=== PATIENT | female | born 1940 | race Caucasian/White ===

== ENCOUNTER 2016-08-31 09:50 | Outpatient (CLI) | payer MEDICARE, OTHER | END 2016-08-31 09:51 | disposition home or self-care (01) | DX: Z12.31 Encounter for screening mammogram for malignant neoplasm of breast (principal); Z80.3 Family history of malignant neoplasm of breast ==

== ENCOUNTER 2017-01-05 07:46 | Day surgery (SDC) | payer MEDICARE, OTHER ==
[2017-01-05] MEDS ORDERED: LACTATED RINGERS 500 ML IV ONE (07:54)
[2017-01-05] MEDS ORDERED: CYCLOPENTOLATE 1% OPHTH DROPS 2 ML OPTH ONE (08:05)
[2017-01-05] MEDS ORDERED: TROPICAMIDE 1% OPHTH 2 ML DROPS OPTH ONE (08:05)
[2017-01-05] MEDS ORDERED: KETOROLAC 0.45% OPHTH DROPS OPTH ONE (08:05)
[2017-01-05] MEDS ORDERED: MIDAZOLAM 2 MG/2 ML VIAL IVP ONE (08:59)
[2017-01-05] MEDS ORDERED: levoFLOXacin 0.5% OPHTH DROPS 5 ML OPTH ONE (09:25)
[2017-01-05] MEDS ORDERED: NEOMYCIN/POLYMYX/DEXAMETH OPHTH OINT OPTH ONE (09:25)
[2017-01-05] MEDS ORDERED: EPINEPHrine 1 MG/ML AMP IO ONE (09:25)
[2017-01-05] MEDS ORDERED: PROPARACAINE 0.5% OPHTH DROPS 15 ML OPTH ONE (09:25)
[2017-01-05] MEDS ORDERED: BRIMONIDINE 0.2% OPHTH DROPS 5 ML OPTH ONE (09:25)
[2017-01-05] MEDS ORDERED: BSS/LIDOCAINE/EPINEPHRINE 1 ML SYRINGE IO ONE (09:26)
[2017-01-05] MEDS ORDERED: CHONDR SULF/HYALURONATE SYRINGE IO ONE (09:26)
== END 2017-01-05 07:47 | disposition home or self-care (01) ==
PROC: 08RK3JZ Replacement of Left Lens with Synthetic Substitute, Percutaneous Approach (ICD-10-PCS; principal; 2017-01-05 09:00)
DX: H25.12 Age-related nuclear cataract, left eye (principal); I10 Essential (primary) hypertension; E11.9 Type 2 diabetes mellitus without complications; I25.2 Old myocardial infarction; I25.10 Atherosclerotic heart disease of native coronary artery without angina pectoris; Z95.5 Presence of coronary angioplasty implant and graft; Z87.891 Personal history of nicotine dependence
CPT/HCPCS: 66984; V2632; V2787

== ENCOUNTER 2017-01-19 08:30 | Day surgery (SDC) | payer MEDICARE, OTHER ==
[2017-01-19] MEDS ORDERED: LACTATED RINGERS 500 ML IV ONE (08:56)
[2017-01-19] MEDS ORDERED: KETOROLAC 0.45% OPHTH DROPS OPTH ONE (09:10)
[2017-01-19] MEDS ORDERED: CYCLOPENTOLATE 1% OPHTH DROPS 2 ML OPTH ONE (09:10)
[2017-01-19] MEDS ORDERED: TROPICAMIDE 1% OPHTH 2 ML DROPS OPTH ONE (09:10)
[2017-01-19] MEDS ORDERED: fentaNYL 100 MCG/2 ML VIAL IVP ONE (10:20)
[2017-01-19] MEDS ORDERED: MIDAZOLAM 2 MG/2 ML VIAL IVP ONE (10:20)
[2017-01-19] MEDS ORDERED: METOPROLOL 5 MG/5 ML VIAL IVP ONE (10:20)
[2017-01-19] MEDS ORDERED: EPINEPHrine 1 MG/ML AMP IO ONE (10:23)
[2017-01-19] MEDS ORDERED: levoFLOXacin 0.5% OPHTH DROPS 5 ML OPTH ONE (10:23)
[2017-01-19] MEDS ORDERED: BRIMONIDINE 0.2% OPHTH DROPS 5 ML OPTH ONE (10:23)
[2017-01-19] MEDS ORDERED: NEOMYCIN/POLYMYX/DEXAMETH OPHTH OINT OPTH ONE (10:23)
[2017-01-19] MEDS ORDERED: BSS/LIDOCAINE/EPINEPHRINE 1 ML SYRINGE IO ONE (10:23)
[2017-01-19] MEDS ORDERED: CHONDR SULF/HYALURONATE SYRINGE IO ONE (10:23)
[2017-01-19] MEDS ORDERED: PROPARACAINE 0.5% OPHTH DROPS 15 ML OPTH ONE (10:23)
[2017-01-19 11:21] VITALS: BP 142/78
--- NOTE | 2017-01-19 12:36 | OPERATIVE REPORT ---
DATE OF SURGERY: 01/19/2017 00:00:00 PREOPERATIVE DIAGNOSIS: Visually impairing cataract, right eye. POSTOPERATIVE DIAGNOSIS: Visually impairing cataract, right eye. NAME OF PROCEDURE: Phacoemulsification cataract extraction with toric intraocular lens implant of the right eye. SURGEON: Christian Acosta MD ANESTHESIA: Topical 0.5% tetracaine with monitored sedation and intracameral Shugarcaine. COMPLICATIONS: None. DESCRIPTION OF SURGICAL PROCEDURE: The patient was brought to the OR and the eye was anesthetized, an d a corneal marker was used to identify the axis of orientation for the toric intraocular lens. The p atient was then prepped and draped in the usual ophthalmic manner. An adhesive plastic drape was plac ed over the eye, a slit was made in the drape, and topical anesthetic was placed on the eye. A lid sp eculum was used to separate the eyelids and expose the eye. A marking pen was then used to christian at th e limbus the orientation of the toric lens. The eye was held securely with the Colibri forceps. A Sylvester ro-Sharp blade was used to make a self-sealing stab wound 2 o'clock hours to the left of the planned clear corneal incision. Viscoelastic was used to fill the anterior chamber, and a crescent blade was used to make the initial vertical component of the self-sealing clear corneal incision. A 2.75 kerat ome was used to complete the incision. A circular tear capsulorrhexis was performed. The nucleus was hydrodissected, and phacoemulsification of the cataract was performed without complication. The I/A u nit was used to remove the cortical material from the eye. The posterior capsule was polished crystal clear with the Ye capsule polisher, and again the I/A unit was used to remove any loose particula te matter after polishing the capsule. Viscoelastic was used to inflate the capsular bag, and intraoc ular lens was inserted into the capsular bag with the loops left shy of proper orientation for the to anand lens to be rotated in a clockwise manner. Viscoelastic was then removed from the eye, and the martin s was nudged in a clockwise manner to orient the toric lens to align perfectly with the orientation m daishas. BSS was used to fill the anterior chamber, the wounds were found to be self-sealing and wate r tight. Several drops of Quixin were placed on the eye. The lid speculum was removed. A drop of brim onidine was placed on the eye. Maxitrol ointment was placed on the eye. The eye was patched and shiel ded, and the patient was taken to the recovery room in good condition. JOB #: [id number] EXT JOB #:[id number]
== END 2017-01-19 08:31 | disposition home or self-care (01) ==
LOC: SDS 08:30
PROVIDERS: ATTEND Specialist
PROC: 08RJ3JZ Replacement of Right Lens with Synthetic Substitute, Percutaneous Approach (ICD-10-PCS; principal; 2017-01-19 09:45)
DX: H25.11 Age-related nuclear cataract, right eye (principal); I10 Essential (primary) hypertension; E03.9 Hypothyroidism, unspecified; I25.10 Atherosclerotic heart disease of native coronary artery without angina pectoris; E11.9 Type 2 diabetes mellitus without complications; Z87.891 Personal history of nicotine dependence
CPT/HCPCS: 66984; V2632; V2787